=== PATIENT | female | born 1965 | race Caucasian/White ===

== ENCOUNTER 2024-10-24 16:44 | Inpatient (IN) | payer MEDICARE, BC ==
[2024-10-24 18:05] LABS: Basophils # (A) 0.08 10*3/uL (0.00-0.10); Basophils % (A) 0.6 %; Eosinophils # (A) 0.03 10*3/uL (0.04-0.35); Eosinophils % (A) 0.2 %; HCT 41.7 % (37.2-46.3); HGB 14.6 g/dL (12.0-15.0); Lymphocytes # (A) 2.43 10*3/uL (0.90-5.00); Lymphocytes % (A) 17.6 %; MCH 32.4 pg (27.0-32.0); MCV 92.5 fL (80.0-97.0); Mean Platelet Volume 11.1 fL (9.5-12.2); Monocytes # (A) 0.83 10*3/uL (0.20-1.00); Neutrophils # (A) 10.38 10*3/uL (1.80-7.70); Neutrophils % (A) 75.2 %; Platelet Count 197 10*3/uL (140-440); RBC 4.51 10*6/uL (4.10-5.20); RDW 13.2 % (11.5-14.5); WBC 13.81 10*3/uL (4.50-10.00)
--- NOTE | 2024-10-24 18:05 | ED ---
General Adult HPI - General Chief complaint: Psychiatric Symptoms Stated complaint: mental health Time Seen by Provider: 10/24/24 16:45 Source: patient, EMS, RN notes reviewed, old records reviewed Mode of arrival: EMS Limitations: altered mental status - History of Present Illness Initial comments: 59-year-old female presenting for psychiatric evaluation. Patient is not from the area. Paramedics had attempted to contact the family but were only able to leave messages. Patient is acutely psychotic, delusional, paranoid, noncooperative. She required restraints during transport. She was found out in traffic outside of a hotel that she had recently been evicted from. - Related Data Home Medications Medication Instructions Recorded Confirmed Dapagliflozin Propanediol [Farxiga] 10 mg PO DAILY 10/24/24 10/24/24 Metoprolol Succinate [Toprol XL] 100 mg PO DAILY 10/24/24 10/24/24 QUEtiapine [SEROquel] 100 mg PO HS 10/24/24 10/24/24 glipiZIDE [glipiZIDE ER] 10 mg PO BID 10/24/24 10/24/24 hydrOXYzine HCL [Atarax] 25 mg PO TID PRN 10/24/24 10/24/24 tiZANidine HCL [Zanaflex] 4 mg PO Q6H PRN 10/24/24 10/24/24 Allergies Allergy/AdvReac Type Severity Reaction Status Date / Time diphenhydramine [facility] Verified 10/24/24 17:23 [From Benadryl] unknown reaction covid-19 vaccine (unknown) Allergy [facility] - Uncoded 10/24/24 17:23 unknown reaction Review of Systems ROS Statement: Those systems with pertinent positive or pertinent negative responses have been documented in the HPI. ROS Other: All systems not noted in ROS Statement are negative. Past Medical History Past Medical History: Diabetes Mellitus, Hypertension, Sleep Apnea/CPAP/BIPAP History of Any Multi-Drug Resistant Organisms: Unobtainable Additional Past Surgical History / Comment(s): back surgery with stimulator, abdominal aortic aneurymn repair 2021 Past Psychological History: Unable to Obtain Smoking Status: Unknown if ever smoked Past Alcohol Use History: Unable to Obtain Past Drug Use History: Unable to Obtain General Exam - General Exam Comments Initial Comments: Patient refuses physical exam General appearance: alert, in no apparent distress, anxious Head exam: Present: atraumatic, normocephalic Eye exam: Present: normal appearance Respiratory exam: Absent: respiratory distress Cardiovascular Exam: Present: other (Vital signs reveal tachycardia, patient refuses auscultation) GI/Abdominal exam: Absent: distended Neurological exam: Present: alert. Absent: oriented X3, motor sensory deficit Psychiatric exam: Present: anxious, other (Acutely psychotic, paranoid and delusional) Skin exam: Present: normal color Course Vital Signs 10/24/24 16:48 Temperature 98.7 F Pulse Rate 126 H Respiratory 20 Rate Blood Pressure 111/78 O2 Sat by Pulse 96 Oximetry Procedures - Restraint - Face to Face Restraint Occurrence 1 Patient's Immediate Situation: Endangers self safety, Endangers staff safety Patient's Reaction to the Intervention: Uncooperative, Hostile, Belligerent Patient's Medical & Behavioral Condition: Awake, Alert, Agitated, Paranoid Need to Continue or Terminate Restraint or Seclusion: Continue Face to Face Eval of Restraint Date: 10/24/24 Face to Face Eval of Restraint Time: 16:58 Medical Decision Making - Medical Decision Making Was pt. sent in by a medical professional or institution (, PA, LAMP CLEANER, urgent care, hospital, or half-way...) When possible be specific @ -No Did you speak to anyone other than the patient for history (EMS, parent, family, police, friend...)? What history was obtained from this source @ -No Did you review nursing and triage notes (agree or disagree)? Why? @ -I reviewed and agree with nursing and triage notes Were old charts reviewed (outside hosp., previous admission, EMS record, old EKG, old radiological studies, urgent care reports/EKG's, half-way records)? Report findings @ -No old charts were reviewed Differential Mental Health Depression, anxiety, bipolar, psychosis, schizophrenia, borderline personality, situational depression, adjustment disorder, behavioral disorder, brain tumor, malingering, substance abuse, encephalopathy, medication reaction, dementia, hypothyroidism, degenerative neurologic disorder, lupus.... This is not meant to be all-inclusive list EKG interpreted by me (3pts min.). @ -As above X-rays interpreted by me (1pt min.). @ -None done CT interpreted by me (1pt min.). @ -None done U/S interpreted by me (1pt. min.). @ -None done What testing was considered but not performed or refused? (CT, X-rays, U/S, labs)? Why? @ -None What meds were considered but not given or refused? Why? @ -None Did you discuss the management of the patient with other professionals (professionals i.e. Dr., PA, LAMP CLEANER, lab, RT, psych nurse, social insurance analyst, chandelier maker, teacher, hydrological technical officer, caser in)? Give summary @ -[EPS. Was smoking cessation discussed for >3mins.? @ -No Was critical care preformed (if so, how long)? @ -No Were there social determinants of health that impacted care today? How? (Homelessness, low income, unemployed, alcoholism, drug addiction, transportatio n, low edu. Level, literacy, decrease access to med. care, long term, rehab)? @ -No Was there de-escalation of care discussed even if they declined (Discuss DNR or withdrawal of care, Hospice)? DNR status @ -No What co-morbidities impacted this encounter? (DM, HTN, Smoking, COPD, CAD, Cancer, CVA, ARF, Chemo, Hep., AIDS, mental health diagnosis, sleep apnea, morbid obesity)? @ -None Was patient admitted / discharged? Hospital course, mention meds given and route, prescriptions, significant lab abnormalities, going to OR and other pertinent info. @ -59-year-old female presenting, paranoid, delusional, agitated. Patient initially requires restraints. She does eventually cooperate enough to be evaluated by emergency psych services and felt to require inpatient psychiatric care. I do agree with this assessment and completed a clinical certification on this patient. She will be admitted to this institution. Undiagnosed new problem with uncertain prognosis? @ -No Drug Therapy requiring intensive monitoring for toxicity (Heparin, Nitro, Insulin, Cardizem)? @ -No Were any procedures done? @ -No Diagnosis/symptom? @Acute psychosis. Acute, or Chronic, or Acute on Chronic? @Acute Uncomplicated (without systemic symptoms) or Complicated (systemic symptoms)? @ -Default Side effects of treatment? @ -No Exacerbation, Progression, or Severe Exacerbation? @ -No Poses a threat to life or bodily function? How? (Chest pain, [place], [place], pneumonia, PE, COPD, DKA, ARF, appy, cholecystitis, CVA, Diverticulitis, Homicidal, Suicidal, threat to staff... and all critical care pts) @ -[Yes, self-harm - Lab Data Result diagrams: 10/24/24 17:57 10/24/24 17:57 Lab Results 10/24/24 10/24/24 10/24/24 Range/Units 17:57 17:57 17:57 WBC 13.81 H (4.50-10.00) 10*3/uL RBC 4.51 (4.10-5.20) 10*6/uL Hgb 14.6 (12.0-15.0) g/dL Hct 41.7 (37.2-46.3) % MCV 92.5 (80.0-97.0) fL MCH 32.4 H (27.0-32.0) pg MCHC 35.0 (32.0-37.0) g/dL Plt Count 197 (140-440) 10*3/uL MPV 11.1 (9.5-12.2) fL Immature Gran % (Auto) 0.4 % Neutrophils % 75.2 % Lymphocytes % 17.6 % Monocytes % 6.0 % Eosinophils % 0.2 % Basophils % 0.6 % Immature Gran # 0.06 H (0.00-0.04) 10*3/uL Neutrophils # 10.38 H (1.80-7.70) 10*3/uL Lymphocytes # 2.43 (0.90-5.00) 10*3/uL Monocytes # 0.83 (0.20-1.00) 10*3/uL Eosinophils # 0.03 L (0.04-0.35) 10*3/uL Basophils # 0.08 (0.00-0.10) 10*3/uL Sodium 138 (137-145) mmol/L Potassium 3.8 (3.5-5.1) mmol/L Chloride 103 (98-107) mmol/L Carbon Dioxide 22 (22-30) mmol/L Anion Gap 13 mmol/L BUN 21 H (7-17) mg/dL Creatinine 0.92 (0.52-1.04) mg/dL Est GFR (CKD-EPI)AfAm 79 (>60 ml/min/1.73 sqM) Est GFR (CKD-EPI)NonAf 68 (>60 ml/min/1.73 sqM) Glucose 150 H (74-99) mg/dL Calcium 9.7 (8.4-10.2) mg/dL Total Bilirubin 1.0 (0.2-1.3) mg/dL AST 65 H (14-36) U/L ALT 48 H (4-34) U/L Alkaline Phosphatase 91 (38-126) U/L Total Protein 7.6 (6.3-8.2) g/dL Albumin 4.5 (3.5-5.0) g/dL Urine Color Urine Appearance (Clear) Urine pH (5.0-8.0) Ur Specific [place] (1.001-1.035) Urine Protein (Negative) Urine Glucose (UA) (Negative) Urine Ketones (Negative) Urine Blood (Negative) Urine Nitrite (Negative) Urine Bilirubin (Negative) Urine Urobilinogen (<2.0) mg/dL Ur Leukocyte Esterase (Negative) Urine RBC (0-5) /hpf Urine WBC (0-5) /hpf Ur Squamous Epith Cells (0-4) /hpf Urine Bacteria (None) /hpf Urine Mucus (None) /hpf Urine Opiates Screen (NotDetected) Ur Oxycodone Screen (NotDetected) Urine Methadone Screen (NotDetected) Ur Barbiturates Screen (NotDetected) U Tricyclic Antidepress (NotDetected) Ur Phencyclidine Scrn (NotDetected) Ur Amphetamines Screen (NotDetected) U Methamphetamines Scrn (NotDetected) U Benzodiazepines Scrn (NotDetected) Urine Cocaine Screen (NotDetected) U Marijuana (THC) Screen (NotDetected) Serum Alcohol <10 mg/dL SARS-CoV-2 (PCR) Not Detected (Not Detectd) 10/24/24 Range/Units 19:47 WBC (4.50-10.00) 10*3/uL RBC (4.10-5.20) 10*6/uL Hgb (12.0-15.0) g/dL Hct (37.2-46.3) % MCV (80.0-97.0) fL MCH (27.0-32.0) pg MCHC (32.0-37.0) g/dL Plt Count (140-440) 10*3/uL MPV (9.5-12.2) fL Immature Gran % (Auto) % Neutrophils % % Lymphocytes % % Monocytes % % Eosinophils % % Basophils % % Immature Gran # (0.00-0.04) 10*3/uL Neutrophils # (1.80-7.70) 10*3/uL Lymphocytes # (0.90-5.00) 10*3/uL Monocytes # (0.20-1.00) 10*3/uL Eosinophils # (0.04-0.35) 10*3/uL Basophils # (0.00-0.10) 10*3/uL Sodium (137-145) mmol/L Potassium (3.5-5.1) mmol/L Chloride (98-107) mmol/L Carbon Dioxide (22-30) mmol/L Anion Gap mmol/L BUN (7-17) mg/dL Creatinine (0.52-1.04) mg/dL Est GFR (CKD-EPI)AfAm (>60 ml/min/1.73 sqM) Est GFR (CKD-EPI)NonAf (>60 ml/min/1.73 sqM) Glucose (74-99) mg/dL Calcium (8.4-10.2) mg/dL Total Bilirubin (0.2-1.3) mg/dL AST (14-36) U/L ALT (4-34) U/L Alkaline Phosphatase (38-126) U/L Total Protein (6.3-8.2) g/dL Albumin (3.5-5.0) g/dL Urine Color Yellow Urine Appearance Clear (Clear) Urine pH 5.5 (5.0-8.0) Ur Specific [place] 1.028 (1.001-1.035) Urine Protein Trace H (Negative) Urine Glucose (UA) Negative (Negative) Urine Ketones 1+ H (Negative) Urine Blood Moderate H (Negative) Urine Nitrite Negative (Negative) Urine Bilirubin Negative (Negative) Urine Urobilinogen <2.0 (<2.0) mg/dL Ur Leukocyte Esterase Negative (Negative) Urine RBC 6 H (0-5) /hpf Urine WBC 4 (0-5) /hpf Ur Squamous Epith Cells 4 (0-4) /hpf Urine Bacteria Rare H (None) /hpf Urine Mucus Occasional H (None) /hpf Urine Opiates Screen Not Detected (NotDetected) Ur Oxycodone Screen Not Detected (NotDetected) Urine Methadone Screen Not Detected (NotDetected) Ur Barbiturates Screen Not Detected (NotDetected) U Tricyclic Antidepress Not Detected (NotDetected) Ur Phencyclidine Scrn Not Detected (NotDetected) Ur Amphetamines Screen Not Detected (NotDetected) U Methamphetamines Scrn Not Detected (NotDetected) U Benzodiazepines Scrn Not Detected (NotDetected) Urine Cocaine Screen Not Detected (NotDetected) U Marijuana (THC) Screen Not Detected (NotDetected) Serum Alcohol mg/dL SARS-CoV-2 (PCR) (Not Detectd) Disposition Clinical Impression: Acute psychosis Disposition: ADMITTED IP TO THIS [facility] Condition: Stable Is patient prescribed a controlled substance at d/c from ED?: No Referrals: None,Stated [Primary Care Provider] - 1-2 days Time of Disposition: 21:23
[2024-10-24 18:17] LABS: ALT 48 U/L (4-34); AST 65 U/L (14-36); African American GFR (CKD) 79 (>60 ml/min/1.73 sqM); Albumin 4.5 g/dL (3.5-5.0); Alcohol <10 mg/dL; Alkaline Phosphatase 91 U/L (38-126); Anion Gap 13 mmol/L; Blood Urea Nitrogen 21 mg/dL (7-17); Calcium 9.7 mg/dL (8.4-10.2); Carbon Dioxide 22 mmol/L (22-30); Chloride 103 mmol/L (98-107); Glucose 150 mg/dL (74-99); Non-African American GFR(CKD) 68 (>60 ml/min/1.73 sqM); Potassium 3.8 mmol/L (3.5-5.1); Sodium 138 mmol/L (137-145); Total Protein 7.6 g/dL (6.3-8.2)
[2024-10-24 20:06] LABS: Appearance,Urine Clear (Clear); Bacteria,Urine Rare /hpf; Bilirubin,Urine Negative (Negative); Blood,Urine Moderate (Negative); Color,Urine Yellow; Glucose,Urine (UA) Negative (Negative); Ketones,Urine 1+ (Negative); Leukocyte Esterase,Urine Negative (Negative); Mucus,Urine Occasional /hpf; Nitrite,Urine Negative (Negative); PH, Urine 5.5 (5.0-8.0); Protein,Urine Trace (Negative); RBC,Urine 6 /hpf (0-5); Specific Gravity,Urine 1.028 (1.001-1.035); Squamous Epithelial Cell,Urine 4 /hpf (0-4); Urobilinogen,Urine <2.0 mg/dL (<2.0); WBC,Urine 4 /hpf (0-5)
[2024-10-24 20:12] LABS: Amphetamine Screen,Urine Not Detected (NotDetected); Barbiturate Screen,Urine Not Detected (NotDetected); Benzodiazepines Screen,Urine Not Detected (NotDetected); Cocaine Screen,Urine Not Detected (NotDetected); Methadone Screen, Urine Not Detected (NotDetected); Opiate Screen,Urine Not Detected (NotDetected); Oxycodone Screen, Urine Not Detected (NotDetected); Phencyclidine Screen,Urine Not Detected (NotDetected); Tricyclic Antidepressant,Urine Not Detected (NotDetected); Urn Cannabinoid Scrn Not Detected (NotDetected)
[2024-10-24] MEDS ORDERED: MAG HYDROX/AL HYDROX/SIMETH 355 ML BOTTLE PO PRN (22:19)
[2024-10-24] MEDS: ZIPRASIDONE 20 MG VIAL IM STA (22:36)
[2024-10-25 07:48] LABS: Glucose,Whole Blood 121 mg/dL (70-110)
[2024-10-25 07:57] LABS: Basophils # (A) 0.07 10*3/uL (0.00-0.10); Basophils % (A) 0.8 %; Eosinophils # (A) 0.12 10*3/uL (0.04-0.35); Eosinophils % (A) 1.4 %; HGB 14.3 g/dL (12.0-15.0); Lymphocytes # (A) 3.94 10*3/uL (0.90-5.00); Lymphocytes % (A) 46.1 %; MCH 32.1 pg (27.0-32.0); MCV 94.2 fL (80.0-97.0); Mean Platelet Volume 11.3 fL (9.5-12.2); Monocytes # (A) 0.65 10*3/uL (0.20-1.00); Monocytes % (A) 7.6 %; Neutrophils # (A) 3.75 10*3/uL (1.80-7.70); Neutrophils % (A) 43.9 %; Platelet Count 190 10*3/uL (140-440); RBC 4.46 10*6/uL (4.10-5.20); RDW 13.4 % (11.5-14.5); WBC 8.55 10*3/uL (4.50-10.00)
[2024-10-25 08:14] LABS: ALT 47 U/L (4-34); AST 56 U/L (14-36); African American GFR (CKD) 81 (>60 ml/min/1.73 sqM); Albumin 4.2 g/dL (3.5-5.0); Alkaline Phosphatase 89 U/L (38-126); Anion Gap 11 mmol/L; Blood Urea Nitrogen 20 mg/dL (7-17); Calcium 9.5 mg/dL (8.4-10.2); Carbon Dioxide 23 mmol/L (22-30); Chloride 106 mmol/L (98-107); Glucose 120 mg/dL (74-99); Non-African American GFR(CKD) 70 (>60 ml/min/1.73 sqM); Potassium 3.6 mmol/L (3.5-5.1); Sodium 140 mmol/L (137-145); Total Bilirubin 0.9 mg/dL (0.2-1.3); Total Protein 7.1 g/dL (6.3-8.2)
[2024-10-25] MEDS: METOPROLOL SUCCINATE (ER) 100 MG TAB.ER.24H PO SCH (09:23)
[2024-10-25] MEDS: DAPAGLIFLOZIN PROPANEDIOL 10 MG TABLET PO SCH (09:24)
[2024-10-25] MEDS: glipiZIDE 5 MG TAB PO SCH (09:26)
[2024-10-25] MEDS: NICOTINE 14MG/24HR PATCH TRANSDERM SCH (09:26)
--- NOTE | 2024-10-25 11:48 | P.HP ---
Psychiatric H&P - . H&P Date: 10/25/24 History & Physical: Allergies Allergy/AdvReac Type Severity Reaction Status Date / Time diphenhydramine [facility] - Verified 10/24/24 17:23 From Benadryl unknown reaction covid-19 vaccine (unknown) Allergy [facility] - Uncoded 10/24/24 17:23 unknown reaction Vital Signs Temp 97.7 F 10/25/24 09:00 Pulse 130 H 10/25/24 09:00 Resp 16 10/25/24 09:00 BP 135/68 10/25/24 09:00 Pulse Ox 100 10/25/24 09:00 FiO2 Intake & Output 10/24/24 10/25/24 10/25/24 18:59 06:59 18:59 Weight 68.039 kg Laboratory Last Values WBC 8.55 10*3/uL (4.50-10.00) 10/25/24 07:27 RBC 4.46 10*6/uL (4.10-5.20) 10/25/24 07:27 Hgb 14.3 g/dL (12.0-15.0) 10/25/24 07:27 Hct 42.0 % (37.2-46.3) 10/25/24 07:27 MCV 94.2 fL (80.0-97.0) 10/25/24 07:27 MCH 32.1 pg (27.0-32.0) H 10/25/24 07:27 MCHC 34.0 g/dL (32.0-37.0) 10/25/24 07:27 Plt Count 190 10*3/uL (140-440) 10/25/24 07:27 MPV 11.3 fL (9.5-12.2) 10/25/24 07:27 Immature Gran % (Auto) 0.2 % 10/25/24 07:27 Neutrophils % 43.9 % 10/25/24 07:27 Lymphocytes % 46.1 % 10/25/24 07:27 Monocytes % 7.6 % 10/25/24 07:27 Eosinophils % 1.4 % 10/25/24 07:27 Basophils % 0.8 % 10/25/24 07:27 Immature Gran # 0.02 10*3/uL (0.00-0.04) 10/25/24 07:27 Neutrophils # 3.75 10*3/uL (1.80-7.70) 10/25/24 07:27 Lymphocytes # 3.94 10*3/uL (0.90-5.00) 10/25/24 07:27 Monocytes # 0.65 10*3/uL (0.20-1.00) 10/25/24 07:27 Eosinophils # 0.12 10*3/uL (0.04-0.35) 10/25/24 07:27 Basophils # 0.07 10*3/uL (0.00-0.10) 10/25/24 07:27 Sodium 140 mmol/L (137-145) 10/25/24 07:27 Potassium 3.6 mmol/L (3.5-5.1) 10/25/24 07:27 Chloride 106 mmol/L (98-107) 10/25/24 07:27 Carbon Dioxide 23 mmol/L (22-30) 10/25/24 07:27 Anion Gap 11 mmol/L 10/25/24 07:27 BUN 20 mg/dL (7-17) H 10/25/24 07:27 Creatinine 0.90 mg/dL (0.52-1.04) 10/25/24 07:27 Est GFR (CKD-EPI)AfAm 81 (>60 ml/min/1.73 sqM) 10/25/24 07:27 Est GFR (CKD-EPI)NonAf 70 (>60 ml/min/1.73 sqM) 10/25/24 07:27 Glucose 120 mg/dL (74-99) H 10/25/24 07:27 POC Glucose (mg/dL) 121 mg/dL (70-110) H 10/25/24 07:47 POC Glu Building Maintenance Supervisor ID Tri Cueto 10/25/24 07:[address] Glu mg/dL 146 mg/dL 10/25/24 07:27 Hemoglobin A1c 6.7 % (<=6.0) H 10/25/24 07:27 Calcium 9.5 mg/dL (8.4-10.2) 10/25/24 07:27 Total Bilirubin 0.9 mg/dL (0.2-1.3) 10/25/24 07:27 AST 56 U/L (14-36) H 10/25/24 07:27 ALT 47 U/L (4-34) H 10/25/24 07:27 Alkaline Phosphatase 89 U/L (38-126) 10/25/24 07:27 Total Protein 7.1 g/dL (6.3-8.2) 10/25/24 07:27 Albumin 4.2 g/dL (3.5-5.0) 10/25/24 07: TSH 2.000 mIU/L (0.465-4.680) 10/25/24 07:27 Urine Color Yellow 10/24/24 19:47 Urine Appearance Clear (Clear) 10/24/24 19:47 Urine pH 5.5 (5.0-8.0) 10/24/24 19:47 Ur Specific [place] 1.028 (1.001-1.035) 10/24/24 19:47 Urine Protein Trace (Negative) H 10/24/24 19:47 Urine Glucose (UA) Negative (Negative) 10/24/24 19:47 Urine Ketones 1+ (Negative) H 10/24/24 19:47 Urine Blood Moderate (Negative) H 10/24/24 19:47 Urine Nitrite Negative (Negative) 10/24/24 19:47 Urine Bilirubin Negative (Negative) 10/24/24 19:47 Urine Urobilinogen <2.0 mg/dL (<2.0) 10/24/24 19:47 Ur Leukocyte Esterase Negative (Negative) 10/24/24 19:47 Urine RBC 6 /hpf (0-5) H 10/24/24 19:47 Urine WBC 4 /hpf (0-5) 10/24/24 19:47 Ur Squamous Epith Cells 4 /hpf (0-4) 10/24/24 19:47 Urine Bacteria Rare /hpf (None) H 10/24/24 19:47 Urine Mucus Occasional /hpf (None) H 10/24/24 19:47 Urine Opiates Screen Not Detected (NotDetected) 10/24/24 19:47 Ur Oxycodone Screen Not Detected (NotDetected) 10/24/24 19:47 Urine Methadone Screen Not Detected (NotDetected) 10/24/24 19:47 Ur Barbiturates Screen Not Detected (NotDetected) 10/24/24 19:47 U Tricyclic Antidepress Not Detected (NotDetected) 10/24/24 19:47 Ur Phencyclidine Scrn Not Detected (NotDetected) 10/24/24 19:47 Ur Amphetamines Screen Not Detected (NotDetected) 10/24/24 19:47 U Methamphetamines Scrn Not Detected (NotDetected) 10/24/24 19:47 U Benzodiazepines Scrn Not Detected (NotDetected) 10/24/24 19:47 Urine Cocaine Screen Not Detected (NotDetected) 10/24/24 19:47 U Marijuana (THC) Screen Not Detected (NotDetected) 10/24/24 19:47 Serum Alcohol <10 mg/dL 10/24/24 17:57 SARS-CoV-2 (PCR) Not Detected (Not Detectd) 10/24/24 17:57 10/25/24 11:40 IDENTIFYING DATA: Patient is a 59-year-old female, she claims that she is she is also going through a separation with her , she has 1 son and she currently lives with her in a house HPI: Patient presented to the hospital yesterday and was evaluated by EPS nurse and according to note "Pt was brought in on a petition from police. [facility] [place] [facility] stated that she was kicked out of the hotel, she was yelling into the street, walking into the main road, yelling that she was going to rip her dogs eyes out. Upon assessment pt was wearing her robe from the hotel and sunglasses. PT was signing a form about wearing her sunglasses and she wanted the sitter to sign the hand written paper too. Pt yelled out to security that she was going to call [employer] to have them arrested. Pt has no insight into her mental health. During assessment pt is disorganized, gradiose, tangential, and demanding. Pt was demanding to see RN's notes and sign off on them. Pt has no understanding as to why she is in the ER and why she was restrainted by EMS. Pt was read the petition and denies everything that is written on it but states that she was at the gas station and she was waving at people and talking. Pts appearance is unkempt and disheleved. When asking questions pt would answer and then state, "I will always come up with an explanation for everything". When asked why police were called she said, "It's probably d/t an electronic issue with my husbands computer, the light switch at the hotel wasn't working either". BALL ASSEMBLER informed this RN that police stated that she was going to rip her dogs eyes out and she denied, "I was only checking his eyes, because he's tired...you can't hold my dog here, it's illegal". RN explained that police informed ER that he is with animal control for now. Pt then went on a tangent about her mother petitioning her before and and that she was in and out of mental hospitals but wasn't really ill, "I prefer everything organic and my medications are not your business, they are private in my medical records". [facility] were able to pull her medications. Pt would not share her contact number, her husbands information, or medications. Pt appears slightly paranoid. Throughout assessment she would continue to state that, "everything can be explained". Pt was rambling baout getting a clear bill of health and the petition states that she can go, then someone broke into her home and messed with their computer, to talking about trusting her pharmacy, "I will find out". Pt denies SI, HI, or hallucinations at this time. Pt denies any drugs or ETOH, UDS NEG and BAT NEG. Pt has moments of clarity but then speaks off the wall. " Patient was seen wandering the hallways earlier today, appears to be disheveled in appearance. She had to be asked to leave group several times due to being disruptive and demanding and causing arguments within the group. Patient was approached by song writer today in the hallway and appeared to be fairly paranoid//suspicious of song writer. Decorator Hand asked if patient wanted to speak in the office she hesitated and did not want to step forward in the office. She preferred to speak in the lounge, she pointed out the different cameras in the lounge to song writer. She asked about credentials. She asked several times what song writer is writing down on the piece of paper. She appeared to have poor frustration tolerance, very poor insight poor judgment. Does not believe that she needs to be in the hospital or take medications. Decorator Hand attempted to speak with patient about the petition and her symptoms however patient began being frustrated with song writer and demanded to end the interview and walked away. She was fairly uncooperative with the rest of the interview and gave no previous psychiatric history or social history. And did not answer any questions regarding auditory or visual hallucinations or suicidal/homicidal ideations. She also did not answer any questions related to drug use. PAST PSYCHIATRIC HISTORY: Patient has a history of psychosis. She is currently on Seroquel 100 mg nightly as her home medication. Unsure if she is taking her medications. Unable to give further past psychiatric history PMH: as per ER note ALLERGIES: as per EMR CHEMICAL DEPENDENCY HISTORY: unable to obtain FAMILY PSYCHIATRIC/SUBSTANCE USE HISTORY: unable to obtain SOCIAL HISTORY: Patient claims that she lives with her in a house, she has 1 son. Claims that she is going through a separation. unable to obtain further social history MENTAL STATUS EXAM: General Appearance: Patient appears to be disheveled in appearance, disheveled hair, stated age is alert, fairly demanding argumentative and oppositional. Patient appears to have poor hygiene and grooming. Behavior: Patient is wandering the hallways, fairly demanding and argumentative. Paranoid/suspicious Speech: Patient's speech is fluent and nonpressured. [place] Mood/Affect: Patient reports their mood is "okay", affect is congruent and constricted. Suicidality/Homicidality: Unable to obtain Perceptions: Unable to obtain Though content/process: Patient is fairly demanding, superficial. Argumentative. Paranoid Memory and concentration: Unable to assess Judgment and insight: Poor STRENGTHS/WEAKNESSES: strength is that patient is resilient. Weakness is that patient has poor judgment and is impulsive and has poor insight INTELLECT: Average IMPRESSIONS: Psychosis unspecified PLAN: -Patient is admitted under voluntary status to [facility] for stabilization of psychiatric symptoms and safety. Patient has not signed adult voluntary form and has not signed medication consent and is placed in patient's chart. A second certification was completed and along with petition will be filed for court. -Medications : -Ativan and Haldol PRN for agitation/aggression -Patient was informed of the risks, benefits and side effects of the medications. Patient did not signed med consent form and was placed in chart. Patient was offered medication information and declined it -Internal Medicine consult to perform medical evaluation and physical. -NRT -nicotine patch -SW on board for discharge planning. Encourage patient to participate in groups to work on coping skills. Will await deferral and court date. 10/25/24 11:47 10/25/24 11:48
[2024-10-25 12:45] LABS: Glucose,Whole Blood 78 mg/dL (70-110)
[2024-10-25] MEDS: NITROFURANTOIN MONOHYD/M-CRYST 100 MG CAP PO SCH (15:18)
[2024-10-25 17:41] LABS: Glucose,Whole Blood 106 mg/dL (70-110)
[2024-10-25] MEDS: PALIPERIDONE 3 MG TAB.ER.24 PO SCH (20:40)
[2024-10-25] MEDS ORDERED: QUEtiapine 100 MG TAB PO SCH (21:00)
--- NOTE | 2024-10-26 05:43 | P.MDCNMH ---
History of Present Illness H&P Date: 10/26/24 59-year-old female diabetes mellitus hypertension Patient coming in for acute psychosis and paranoid ideation. Patient insisted on door to be open during exam and to have someone to hold the door for her she gave permission for the nurse to hold the door and be listening to our conversation. Patient is fixated on the fact that someone is poisoning her and that everyone in her neighborhood and even her pharmacy knows about it she is asking for that to be investigated. The patient currently denies any fever, chills, cough, sore throat, chest pain , trouble breathing , nausea , vomiting, abd pain , changes in urinary or bowel habits. Patient denies any tobacco smoking and illicit drugs or alcohol review of systems Pertinent positives as noted in HPI. All other systems were reviewed and are negative on exam Constitutional: No acute distress Eyes: Anicteric sclerae, moist conjunctiva, Pupils equal round reactive to light Lungs: Clear to auscultation Clear to percussion Normal respiratory effort, no accessory muscle use Cardiovascular: Heart regular in rate and rhythm, No murmurs, gallops, or rubs No peripheral edema Abdominal: Soft Nontender, no guarding, rebound or rigidity Abdomen moving with respiration Normoactive bowel sounds Extremities: No clubbing Pedal pulses intact and symmetrical Radial pulses intact and symmetrical No calf tenderness Psychiatric: Alert and oriented to person, place and time Neuro Muscles Strength 5/5 in all 4 extremities Sensation to light touch grossly present throughout Assessment and plan Diabetes mellitus Well-controlled A1c 6.7 Continue with current regimen Hypertension Controlled Continue with metoprolol Mild transaminitis concerns regarding fatty liver disease Concerns regarding metabolic syndrome and MASH Consider abdominal ultrasound to evaluate for fatty liver Consider close follow-up outpatient on liver enzymes until resolution Continue with tight blood pressure control and blood sugar control Check lipid profile Otherwise the rest of her blood work unremarkable Thank you for this consultation Past Medical History Past Medical History: Diabetes Mellitus, Hypertension, Sleep Apnea/CPAP/BIPAP History of Any Multi-Drug Resistant Organisms: Unobtainable Additional Past Surgical History / Comment(s): back surgery with stimulator, abdominal aortic aneurymn repair 2021 Past Psychological History: Unable to Obtain Smoking Status: Unknown if ever smoked Past Alcohol Use History: Unable to Obtain Past Drug Use History: Unable to Obtain Medications and Allergies Home Medications Medication Instructions Recorded Confirmed Type Dapagliflozin Propanediol [Farxiga] 10 mg PO DAILY 10/24/24 10/24/24 History Metoprolol Succinate [Toprol XL] 100 mg PO DAILY 10/24/24 10/24/24 History QUEtiapine [SEROquel] 100 mg PO HS 10/24/24 10/24/24 History glipiZIDE [glipiZIDE ER] 10 mg PO BID 10/24/24 10/24/24 History hydrOXYzine HCL [Atarax] 25 mg PO TID PRN 10/24/24 10/24/24 History tiZANidine HCL [Zanaflex] 4 mg PO Q6H PRN 10/24/24 10/24/24 History Allergies Allergy/AdvReac Type Severity Reaction Status Date / Time diphenhydramine Allergy Per [facility] - Verified 10/24/24 17:23 [From Benadryl] unknown reaction covid-19 vaccine (unknown) Allergy Per [facility] - Uncoded 10/24/24 17:23 unknown reaction Physical Exam Vitals: Vital Signs Temp Pulse Resp BP Pulse Ox 10/25/24 21:00 97.0 F L 113 H 18 153/83 98 10/25/24 09:00 97.7 F 130 H 16 135/68 100 Intake and Output 10/25/24 10/25/24 10/26/24 14:59 22:59 06:59 Other: Weight 68.039 kg Cranial Nerve Examination - Cranial Nerves Cranial Nerve II- Optic: Intact Cranial Nerve III- Oculomotor: Intact Cranial Nerve IV- Trochlear: Intact Cranial Nerve V- Trigeminal: Intact Cranial Nerve - Abducens: Intact Cranial Nerve VII- Facial: Intact Cranial Nerve VIII- Auditory: Intact Cranial Nerve IX- Glossopharyngeal: Intact Cranial Nerve X- Vagus: Intact Cranial Nerve XI- Accessory: Intact Cranial Nerve XII- Hypoglossal: Intact Results CBC & Chem 7: 10/25/24 07:27 10/25/24 07:27 Labs: Abnormal Lab Results - Last 24 Hours (Table) 10/25/24 10/25/24 10/25/24 Range/Units 07:27 07:27 07:27 MCH 32.1 H (27.0-32.0) pg BUN 20 H (7-17) mg/dL Glucose 120 H (74-99) mg/dL POC Glucose (mg/dL) (70-110) mg/dL Hemoglobin A1c 6.7 H (<=6.0) % AST 56 H (14-36) U/L ALT 47 H (4-34) U/L // Range/Units 07:47 MCH (27.0-32.0) pg BUN (7-17) mg/dL Glucose (74-99) mg/dL POC Glucose (mg/dL) 121 H (70-110) mg/dL Hemoglobin A1c (<=6.0) % AST (14-36) U/L ALT (4-34) U/L
[2024-10-26 07:55] LABS: Glucose,Whole Blood 126 mg/dL (70-110)
[2024-10-26] MEDS: IBUPROFEN 600 MG TAB PO PRN (08:28)
[2024-10-26 10:50] LABS: Chol/HDL Ratio 3.58 Ratio; LDL Cholesterol,Calculated 116.7 mg/dL (0.0-131.0)
--- NOTE | 2024-10-26 11:50 | P.PN ---
Progress Note - Text Progress Note Date: 10/26/24 Interval history: Patient was seen today wandering the hallways insistent on speaking with chief underwriter. She continues to be fairly argumentative and oppositional with chief underwriter. Also fairly suspicious of chief underwriter and does not trust them. She pulled out her medication list and asked chief underwriter several times "why are you putting me on deadly medications". [employer] attempted to explain to patient that these were prn medications at they were not deadly and only used for certain circumstances that require it however patient kept on interrupting and repeatedly asked the question. He appeared to have poor reality testing, impulsive demanding. She continues to be disruptive in group and in the milieu. She did take her medication last night, claims that she does not want to take medications that chief underwriter's prescribing. Hygiene and grooming appear to be improving mildly. When asked about sleep appetite visual auditory suicidal and homicidal ideations she directed the question back at chief underwriter. MENTAL STATUS EXAM: General Appearance: Patient appears to be disheveled in appearance, disheveled hair, stated age is alert, fairly demanding argumentative and oppositional. Patient appears to have mildly improving hygiene and grooming. Behavior: Patient is wandering the hallways, fairly demanding and argumentative. Paranoid/suspicious Speech: Patient's speech is fluent and nonpressured. [place], repetitive Mood/Affect: Patient reports their mood is "fine", affect is incongruent and constricted. Suicidality/Homicidality: Unable to obtain Perceptions: Unable to obtain Though content/process: Patient is fairly demanding, superficial. Argumentative. Paranoid demanding discharge Memory and concentration: Unable to assess Judgment and insight: Poor IMPRESSIONS: Psychosis unspecified PLAN: -Patient is admitted under voluntary status to MHU for stabilization of psychiatric symptoms and safety. Patient has not signed adult voluntary form and has not signed medication consent and is placed in patient's chart. A second certification was completed and along with petition will be filed for court. -Medications : increase invega po to 3 mg bid for mood stabilization/psychosis. Will likely need to consider long-acting injection due to very poor insight and poor compliance. Consider adding mood stabilizer such as lithium or Depakote if needed over the weekend. -Ativan and Haldol PRN for agitation/aggression -NRT -nicotine patch -SW on board for discharge planning. Encourage patient to participate in groups to work on coping skills. Will await deferral and court date.
[2024-10-26] MEDS: ACETAMINOPHEN TAB 325 MG TAB PO PRN (12:30)
[2024-10-26 12:47] LABS: Glucose,Whole Blood 99 mg/dL (70-110)
[2024-10-26 17:48] LABS: Glucose,Whole Blood 144 mg/dL (70-110)
[2024-10-26 20:19] LABS: Glucose,Whole Blood 187 mg/dL (70-110)
[2024-10-26] MEDS: PALIPERIDONE 3 MG TAB.ER.24 PO SCH (22:10)
[2024-10-27 08:57] LABS: Glucose,Whole Blood 163 mg/dL (70-110)
[2024-10-27] MEDS: MAGNESIUM HYDROXIDE 2,400 MG/30 ML CUP PO PRN (12:07)
[2024-10-27 12:45] LABS: Glucose,Whole Blood 75 mg/dL (70-110)
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
[2024-10-27 17:48] LABS: Glucose,Whole Blood 93 mg/dL (70-110)
[2024-10-27 20:27] LABS: Glucose,Whole Blood 155 mg/dL (70-110)
[2024-10-27] MEDS: DIVALPROEX 250 MG TABLET.DR PO SCH (22:10)
[2024-10-28] MEDS: DOCUSATE 100 MG CAP PO SCH (00:21)
[2024-10-28] MEDS: HALOPERIDOL LACTATE 5 MG/ML 1 ML VIAL IM PRN (02:52)
[2024-10-28] MEDS: LORazepam 2 MG/ML INJ IM PRN (02:53)
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
--- NOTE | 2024-10-28 04:31 | CT ---
EXAM: CT Head Without Intravenous Contrast CLINICAL HISTORY: Fall ams post haldol TECHNIQUE: Axial computed tomography images of the head/brain without intravenous contrast. CTDI is 49.2 mGy and DLP is 1392.4 mGy-cm. This CT exam was performed using one or more of the following dose reduction techniques: automated exposure control, adjustment of the mA and/or kV according to patient size, and/or use of iterative reconstruction technique. COMPARISON: No relevant prior studies available. FINDINGS: Brain: Unremarkable. No hemorrhage. No significant white matter disease. No edema. Ventricles: Unremarkable. No ventriculomegaly. Bones/joints: Unremarkable. No acute fracture. Soft tissues: No significant overlying acute traumatic soft tissue abnormality. No radiopaque foreign body. Sinuses: Unremarkable as visualized. No acute sinusitis. Mastoid air cells: Unremarkable as visualized. No mastoid effusion. IMPRESSION: No acute intracranial process identified.
[2024-10-28 07:59] LABS: Glucose,Whole Blood 116 mg/dL (70-110)
[2024-10-28 12:34] LABS: Glucose,Whole Blood 113 mg/dL (70-110)
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
[2024-10-28 16:32] LABS: Glucose,Whole Blood 106 mg/dL (70-110)
[2024-10-28 20:28] LABS: Glucose,Whole Blood 122 mg/dL (70-110)
[2024-10-29 07:52] LABS: Glucose,Whole Blood 122 mg/dL (70-110)
[2024-10-29] MEDS: hydrOXYzine HCL 25 MG TAB PO PRN (11:50)
[2024-10-29 12:40] LABS: Glucose,Whole Blood 73 mg/dL (70-110)
--- NOTE | 2024-10-29 13:05 | P.PN ---
Progress Note - Text Progress Note Date: 10/29/24 Interval history: Patient was seen today wandering the hallways insistent on speaking with fha underwriter. Patient was agreeable to speak to fha underwriter in the lounge. There was noted female patient in the lounge however patient asked if that other patient could stay. We spoke about how she is doing with treatment she states that "you got my medications all messed up" referring to the Invega and claims that she does not like taking the Depakote" continue to do so. She appears to be mildly less oppositional and argumentative today. Claims that there is a program on her phone and also her 's phone that is "stealing information and spying on this". She also spoke more about her medical conditions. she appeared to have poor reality testing, impulsive demanding, this is improving mildly. She continues to be disruptive in group and in the milieu. Has been refusing Invega. Hygiene and grooming appear to be improving mildly. She is denying any suicidal or homicidal ideations intent or plan. Denying any auditory or visual hallucinations. MENTAL STATUS EXAM: General Appearance: Patient appears to be disheveled in appearance, less disheveled hair, stated age is alert,less demanding argumentative. Patient appears to have mildly improving hygiene and grooming. Behavior: Patient is wandering the hallways, less demanding and argumentative. less suspicious Speech: Patient's speech is fluent and nonpressured. [place], improving mildly Mood/Affect: Patient reports their mood is "fine", affect is incongruent and constricted. Suicidality/Homicidality: Denies Perceptions: Denies Though content/process: Patient is less demanding, superficial. Endorsing paranoid delusions. Memory and concentration: Alert and oriented x 3, improving attention span Judgment and insight: Poor, improving mildly IMPRESSIONS: Psychosis unspecified PLAN: -Patient is admitted under voluntary status to [facility]HU for stabilization of psychiatric symptoms and safety. Patient has not signed adult voluntary form and has not signed medication consent and is placed in patient's chart. -Medications : invega po to 3 mg bid for mood stabilization/psychosis. Will likely need to consider long-acting injection due to very poor insight and poor compliance. Continue with Depakote 250 mg twice daily for mood stabilization. -Ativan and Haldol PRN for agitation/aggression -NRT -nicotine patch -SW on board for discharge planning. Encourage patient to participate in groups to work on coping skills. Will await deferral and court date.
[2024-10-29 17:35] LABS: Glucose,Whole Blood 76 mg/dL (70-110)
[2024-10-29 19:52] LABS: Glucose,Whole Blood 137 mg/dL (70-110)
[2024-10-29] MEDS: tiZANidine 4 MG TAB PO PRN (20:37)
[2024-10-29 21:03] LABS: Appearance,Urine Clear (Clear); Bilirubin,Urine Negative (Negative); Blood,Urine Trace (Negative); Color,Urine Colorless; Glucose,Urine (UA) 4+ (Negative); Ketones,Urine Negative (Negative); Leukocyte Esterase,Urine Negative (Negative); Mucus,Urine Rare /hpf; Nitrite,Urine Negative (Negative); Protein,Urine Negative (Negative); RBC,Urine 1 /hpf (0-5); Specific Gravity,Urine 1.008 (1.001-1.035); Squamous Epithelial Cell,Urine <1 /hpf (0-4); Urobilinogen,Urine <2.0 mg/dL (<2.0); WBC,Urine <1 /hpf (0-5)
[2024-10-30] MEDS: LORazepam 1 MG TAB PO PRN (08:49)
[2024-10-30 08:57] LABS: Glucose,Whole Blood 165 mg/dL (70-110)
--- NOTE | 2024-10-30 10:17 | P.PN ---
Progress Note - Text Progress Note Date: 10/30/24 Interval history: Patient was seen today wandering the hallways near the nursing staff. She joan roached the signwriter earlier today and told signwriter "you are not my doctor anymore" and stated that she is going to wait for her other doctor to come and see her. She claims that she does not want to speak to signwriter today and I will and asked him not to write any documentation in her medical chart. When asked why she states that "I do not trust you, you are writing bad things about me". She then proceeded to stop answering any questions and walked away from signwriter. She did fill out a request for medical records. MENTAL STATUS EXAM: General Appearance: Patient appears to be mildly disheveled in appearance, stated age is alert,less demanding argumentative. Patient appears to have mildly improving hygiene and grooming. Behavior: Patient is wandering the hallways, less demanding and argumentative. Suspicious Speech: Patient's speech is fluent and nonpressured. [place], improving mildly Mood/Affect: Unable to assess Suicidality/Homicidality: Unable to assess Perceptions: Unable to assess Though content/process: Patient is demanding, dismissive. Paranoid. Memory and concentration: Unable to assess Judgment and insight: Poor IMPRESSIONS: Psychosis unspecified PLAN: -Patient is admitted under voluntary status to MHU for stabilization of psychiatric symptoms and safety. Patient has not signed adult voluntary form and has not signed medication consent and is placed in patient's chart. -Medications : invega po to 3 mg bid for mood stabilization/psychosis. Will likely need to consider long-acting injection due to very poor insight and poor compliance. Depakote 250 mg twice daily for mood stabilization. -Ativan and Haldol PRN for agitation/aggression -NRT -nicotine patch - on board for discharge planning. Encourage patient to participate in groups to work on coping skills. Will await deferral and court date. Electric Installer, will hold off on reviewing the medical records with patient at this time as he is not would be harmful for patients treatment plan as patient is currently argumentative, uncooperative demanding and also paranoid.
[2024-10-30] MEDS: haloperidoL 5 MG TAB PO PRN (12:30)
[2024-10-30 12:39] LABS: Glucose,Whole Blood 86 mg/dL (70-110)
[2024-10-30 17:57] LABS: Glucose,Whole Blood 98 mg/dL (70-110)
[2024-10-31 07:56] LABS: Glucose,Whole Blood 123 mg/dL (70-110)
[2024-10-31 12:40] LABS: Glucose,Whole Blood 78 mg/dL (70-110)
--- NOTE | 2024-10-31 13:42 | P.PN ---
Progress Note - Text Progress Note Date: 10/31/24 Interval history: Patient was seen today wandering the hallways near the nursing staff and also sitting in the lounge. Diversity Intern encouraged patient to be interviewed today however patient continues to be fairly dismissive of verse writer stating that "I am only going to talk to you if you discharge me today". She continues to request to be transferred to a different doctor and specifically asked about Dr. Cline. She was fairly uncooperative with verse writer continued to be paranoid, insulting and verse writer. She refused to answer any other questions and believes that verse writer is going to "use it against me". Patient has been taking medications for the past day. MENTAL STATUS EXAM: General Appearance: Patient appears to be less disheveled in appearance, stated age is alert, demanding argumentative, uncooperative. Patient appears to have mildly improving hygiene and grooming. Behavior: Patient is wandering the hallways, suspicious and uncooperative with verse writer Speech: Patient's speech is fluent and nonpressured. [place], demanding Mood/Affect: Unable to assess Suicidality/Homicidality: Unable to assess Perceptions: Unable to assess Though content/process: Patient is demanding, dismissive. Paranoid. Memory and concentration: Unable to assess Judgment and insight: Poor IMPRESSIONS: Psychosis unspecified PLAN: -Patient is admitted under voluntary status to MHU for stabilization of psychiatric symptoms and safety. Patient has not signed adult voluntary form and has not signed medication consent and is placed in patient's chart. -Medications : invega po to 3 mg bid for mood stabilization/psychosis. Will likely need to consider long-acting injection due to very poor insight and poor compliance. Depakote 250 mg twice daily for mood stabilization. -Ativan and Haldol PRN for agitation/aggression -NRT -nicotine patch - on board for discharge planning. Encourage patient to participate in groups to work on coping skills. Patient did not defer with her gear hobber operator. Hearing is scheduled for tomorrow at 9 AM with [facility]. Diversity Intern asked Dr. Cline if she would be willing to take on the patient's case, she declined at this time therefore patient will continue on under my care.
[2024-10-31 17:49] LABS: Glucose,Whole Blood 85 mg/dL (70-110)
[2024-10-31 20:27] LABS: Glucose,Whole Blood 152 mg/dL (70-110)
[2024-11-01 07:54] LABS: Glucose,Whole Blood 116 mg/dL (70-110)
--- NOTE | 2024-11-01 11:54 | P.PN ---
Progress Note - Text Progress Note Date: 11/01/24 Interval history: Patient was seen today wandering the hallways today, was approached by investigative writer to be interviewed. Patient walked right by investigative writer and stated "are you kiddingly I am not talking to you, you are the world's biggest criminal". She refused to answer any other questions and walked away from investigative writer. She has been refusing medication since yesterday. Appears to be less intrusive. Continues to be arguing and paranoid demanding. Patient had court earlier this morning which resulted in a mental health court order. MENTAL STATUS EXAM: General Appearance: Patient appears to be less disheveled in appearance, stated age is alert, demanding argumentative, uncooperative. Patient appears to have mildly improving hygiene and grooming. Behavior: Patient is wandering the hallways, suspicious and uncooperative with investigative writer Speech: Patient's speech is fluent and nonpressured. [place], demanding argumentative Mood/Affect: Unable to assess Suicidality/Homicidality: Unable to assess Perceptions: Unable to assess Though content/process: Patient is demanding, dismissive. Paranoid. Memory and concentration: Unable to assess Judgment and insight: Poor IMPRESSIONS: Psychosis unspecified PLAN: -Patient is admitted under voluntary status to MHU for stabilization of psychiatric symptoms and safety. Patient has not signed adult voluntary form and has not signed medication consent and is placed in patient's chart. -Medications : invega po 3 mg bid for mood stabilization/psychosis. Will likely need to consider long-acting injection due to very poor insight and poor compliance. Depakote 250 mg twice daily for mood stabilization. will order PRolixin IM as back up according to order if patient is refusing PO Invega or depakote. -Ativan and Haldol PRN for agitation/aggression -NRT -nicotine patch -SW on board for discharge planning. Encourage patient to participate in groups to work on coping skills. Patient had a hearing on 11/01 which resulted in a mental health court order. Goal will be to transition patient on to a long- acting injection to help ensure compliance and stability.
[2024-11-01 12:24] LABS: Glucose,Whole Blood 86 mg/dL (70-110)
[2024-11-01 12:42] LABS: Glucose,Whole Blood 103 mg/dL (70-110)
[2024-11-01 17:36] LABS: Glucose,Whole Blood 92 mg/dL (70-110)
[2024-11-02 07:54] LABS: Glucose,Whole Blood 107 mg/dL (70-110)
[2024-11-02 12:42] LABS: Glucose,Whole Blood 84 mg/dL (70-110)
[2024-11-02] MEDS: LIDOCAINE 4% PATCH TOPICAL SCH (13:50)
[2024-11-02] MEDS ORDERED: flUPHENAZine 2.5 MG/ML (MDV) 10 ML VIAL IM PRN (19:49)
--- NOTE | 2024-11-02 20:23 | P.PN ---
Progress Note - Text Progress Note Date: 11/02/24 Interval history: Patient was seen today talking to the nurse at the nurse's station. She approac hed by creative services writer to be interviewed, initially ignored, stated she didn't want to talk to me, then agreed to talk to me but was uncooperative, argumentative and irrational. She continues to exhibit paranoid delusions, reports she does not trust the doctors, claims " Sanjay is dangerous" for reasons that don't appear to make any sense. Her insight into the severity of her mental illness is very poor. She is refusing her Invega and refuses any other antipsychotics offered in its place because she claims she is not psychotic and incorrectly claims it was the Invega that was making her psychotic. She is only agreeing to take the Depakote which she believes is "working quite well" for her without an antipsychotic. She appears in denial that she has been placed on a court order for mental health treatment. No SI/HI reported. She denies auditory or visual hallucinations. She claims she has been seen by multiple mental health providers and primary care doctor who she claims "cleared" her from having any psychosis. MENTAL STATUS EXAM: General Appearance: Patient appears to be an overweight adult female, dressed in casual attire, fair hygiene and grooming. Behavior: Patient is standing at the nurse's station intensely talking with a nurse, is suspicious, argumentative, uncooperative with creative services writer Speech: Patient's speech is fluent and non-pressured. Mood/Affect: irritable/congruent Suicidality/Homicidality: Denies Perceptions: Denies AVH Though content/process: Paranoid delusions, fixated on delusional thought content Memory and concentration: Impaired by the severity of her mental illness Judgment and insight: Very poor IMPRESSIONS: Psychosis unspecified, r/o Schizophrenia vs Delusional disorder PLAN: -Patient has been placed on a court order for mental health treatment. -Medications: Continue Invega po 3 mg bid for mood stabilization/psychosis, which she is currently refusing. Will likely need to consider long-acting injection due to very poor insight and poor compliance. Prolixin 2.5 mg IM BID started for refusal of oral Invega or Depakote. Continue Depakote 250 mg twice daily for mood stabilization. -Ativan and Haldol PRN for agitation/aggression -NRT - Nicotine patch -SW on board for discharge planning. Encourage patient to participate in groups to work on coping skills. - Patient had a hearing on 11/01 which resulted in a mental health court order. Go al will be to transition patient on to a long-acting injection to help ensure compliance and stability.
[2024-11-03 07:52] LABS: Glucose,Whole Blood 108 mg/dL (70-110)
--- NOTE | 2024-11-03 10:30 | P.PN ---
Subjective Progress Note Date: 11/03/24 Principal diagnosis: Schizophrenia versus delusional disorder Patient was seen today walking in the winters he came readily and was slightly pressured and verbose but pleasant and cooperative. Her main focus was wanting to be discharged but she rambled so much she was a little unclear as to why that was so important to her. She mentions something about having her back fused and that because her TENS unit is working she does not tolerate the bed being here. However then she got up and bent over to demonstrate her surgeries have worked and how flexible. MENTAL STATUS EXAM: Eye contact is good General Appearance: Patient appears to be an overweight adult female, dressed in casual attire, fair hygiene and grooming. Behavior: Patient is standing at the nurse's station intensely talking with a nurse, is suspicious, argumentative, uncooperative with sheet writer Speech: Patient's speech is fluent and non-pressured. 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 Memory and concentration: Impaired by the severity of her mental illness Judgment and insight: Very poor IMPRESSIONS: Psychosis unspecified, r/o Schizophrenia vs Delusional disorder She comes across with bipolar symptoms. PLAN: -Patient has been placed on a court order for mental health treatment. -Medications: Continue Invega po 3 mg bid for mood stabilization/psychosis, which she is currently refusing. Will likely need to consider long-acting injection due to very poor insight and poor compliance. Prolixin 2.5 mg IM BID started for refusal of oral Invega or Depakote. Continue Depakote 250 mg twice daily for mood stabilization. -Ativan and Haldol PRN for agitation/aggression -NRT - Nicotine patch -SW on board for discharge planning. Encourage patient to participate in groups to work on coping skills. - Patient had a hearing on 11/01 which resulted in a mental health court order. Goal will be to transition patient on to a long-acting injection to help ensure compliance and stability. Objective - Vital Signs Vital signs: Vital Signs Temp 97.6 F 11/03/24 08:25 Pulse 78 11/03/24 08:25 Resp 16 11/03/24 08:25 BP 124/65 11/03/24 08:25 Pulse Ox 98 11/03/24 08:25 FiO2 - Labs CBC & Chem 7: 10/25/24 07:27 10/25/24 07:27
[2024-11-03 12:40] LABS: Glucose,Whole Blood 150 mg/dL (70-110)
[2024-11-03 17:46] LABS: Glucose,Whole Blood 88 mg/dL (70-110)
--- NOTE | 2024-11-04 07:36 | P.PN ---
Subjective Progress Note Date: 11/04/24 Principal diagnosis: Schizophrenia versus delusional disorder Patient was seen today walking in the winters he came readily and was slightly pressured and verbose but pleasant and cooperative. Her main focus today was wanting me to talk to her and get him to except forgiveness and work on the marriage. She also was focused medically on some "machine" that have been put in that monitors her breathing at night and triggers her tongue to pull forward for her sleep apnea which she says is central. She then rambled on to how nobody helps her with her medical problems. MENTAL STATUS EXAM: Eye contact is good General Appearance: Patient appears to be an overweight adult female, dressed in casual attire, fair hygiene and grooming. Behavior: Patient was cooperative Speech: Patient's speech is fluent and slightly pressured and rambling Mood/Affect: Labile once or twice she started crying and then other times she seemed upset and other times okay and she was shift rapidly Suicidality/Homicidality: Denies Perceptions: Denies AVH Though content/process: Paranoid delusions, fixated on delusional thought content. Memory and concentration: Impaired by the severity of her mental illness Judgment and insight: Very poor IMPRESSIONS: Psychosis unspecified, r/o Schizophrenia vs Delusional disorder She comes across with bipolar symptoms. PLAN: -Patient has been placed on a court order for mental health treatment. -Medications: Continue Invega po 3 mg bid for mood stabilization/psychosis, which she is currently refusing. Will likely need to consider long-acting injection due to very poor insight and poor compliance. Prolixin 2.5 mg IM BID started for refusal of oral Invega or Depakote. Continue Depakote 250 mg twice daily for mood stabilization. -Ativan and Haldol PRN for agitation/aggression -NRT - Nicotine patch - on board for discharge planning. Encourage patient to participate in groups to work on coping skills. - Patient had a hearing on 11/01 which resulted in a mental health court order. Goal will be to transition patient on to a long-acting injection to help ensure compliance and stability. Objective - Vital Signs Vital signs: Vital Signs Temp 97.8 F 11/03/24 21:00 Pulse 75 11/03/24 21:00 Resp 16 11/03/24 08:25 BP 121/58 11/03/24 21:00 Pulse Ox 100 11/03/24 21:00 FiO2 - Labs CBC & Chem 7: 10/25/24 07:27 10/25/24 07:27 Labs: Abnormal Lab Results - Last 24 Hours (Table) 11/03/24 Range/Units 12:38 POC Glucose (mg/dL) 150 H (70-110) mg/dL
[2024-11-04 07:37] LABS: Glucose,Whole Blood 116 mg/dL (70-110)
[2024-11-04 11:19] LABS: Glucose,Whole Blood 61 mg/dL (70-110)
[2024-11-04 11:34] LABS: Glucose,Whole Blood 105 mg/dL (70-110)
[2024-11-04 12:42] LABS: Glucose,Whole Blood 174 mg/dL (70-110)
[2024-11-04 17:46] LABS: Glucose,Whole Blood 190 mg/dL (70-110)
[2024-11-04 19:59] LABS: Glucose,Whole Blood 185 mg/dL (70-110)
[2024-11-05 07:35] LABS: Glucose,Whole Blood 129 mg/dL (70-110)
--- NOTE | 2024-11-05 12:32 | P.PN ---
Progress Note - Text Progress Note Date: 11/05/24 Chief complaint: "Psychosis" Interval History: Patient was seen wandering the hallways and was directable and agreeable to speak with writer producer in the office. Prior to meeting the patient recommended was done this is the first time meeting the patient. Per treatment team patient continues to refuse and declined to sign AMY's. They do note that she has improved from admission. Speaking with patient she denies any of the information listed on the H&P including screaming and yelling out in the middle of the street. Additionally she notes that she has plans on returning the home to her . The patient did state that she signed the ROIs for multiple people including her . She denies any depression but notes that she is anxious because of an upcoming impending divorce and her mother. She notes that the Invega has been beneficial and causing clarity, calmness, and focus. She denies any auditory visual hallucinations. She notes no mood swings, racing thoughts. She notes that she slept well last night and notes an increased appetite because the food is good here. She denied any suicidal or homicidal ideations. Patient had bought a vehicle 3 weeks ago and it is currently being delivered to the hospital. Mental Status Exam: General Appearance: Patient appears to be stated age is alert, directable, and cooperative. Behavior: Patient is calmly seated without any agitated behavior. Speech: Patient's speech is fluent and nonpressured. Mood/Affect: Mood is improving mildly, affect is congruent and constricted. Suicidality/Homicidality: Patient denies having any suicidal or homicidal ideation intent or plan. Perceptions: Patient denies any visual hallucinations and denies any auditory hallucinations Though content/process: Patient appears slightly delusional specifically about the incident bringing her into the hospital. Memory and concentration: AOX3, grossly intact for the purposes of this session Judgment and insight: Improving mildly Assessment The patient presented well initially however after further discussion presented slightly odd and guarded. Additionally made somewhat odd that she ordered a vehicle and had it delivered to the hospital. Plan: -Patient continues to meet criteria for inpatient psychiatric admission for symptom stabilization and safety. Patient has not signed in. -Medications: Depakote 250 mg take 1 tablet by mouth twice daily for mood stabilization Invega 3 mg take 1 tablet by mouth twice daily for psychosis/mood stabilization Prolixin 2.5 mg once IM twice daily after refusing Invega -When necessary Ativan and Haldol for agitation/aggression. -NRT -nicotine patch -SW on board for discharge planning. Encouraged the patient to participate in milieu. The patient currently has a court order stay
[2024-11-05 12:44] LABS: Glucose,Whole Blood 98 mg/dL (70-110)
[2024-11-05 17:45] LABS: Glucose,Whole Blood 122 mg/dL (70-110)
[2024-11-06 01:11] LABS: Glucose,Whole Blood 172 mg/dL (70-110)
[2024-11-06 07:51] LABS: Glucose,Whole Blood 127 mg/dL (70-110)
[2024-11-06 13:04] LABS: Glucose,Whole Blood 125 mg/dL (70-110)
--- NOTE | 2024-11-06 13:13 | P.PN ---
Progress Note - Text Progress Note Date: 11/06/24 Chief complaint: Psychosis Interval History: Patient was seen wandering the hallways and and refused to see this provider. Per report patient still is intrusive and entitled. During report no adverse reports of sleep problems, energy, appetite or concentration. Mental Status Exam: General Appearance: Patient appeared to be somewhat disheveled with her hair unmade but her stated age Behavior: Not uncooperative Speech: Patient's speech is fluent and nonpressured. Mood/Affect: Mood is worse, affect is congruent and constricted. Suicidality/Homicidality: Patient refused to interview unknown whether the patient suicidal or homicidal at this time Perceptions: The patient did not appear to be responding to internal stimuli but refused to interview unknown whether she is having auditory or visual hallucinations. Though content/process: Unable to evaluate thought content or process due to refusal to interview. Memory and concentration: Unable to evaluate memory and concentration due to refusal to evaluate Judgment and insight: Poor/poor Diagnoses: Psychosis unspecified Assessment: The patient's behavior on the unit has demonstrated wanting to control things and dictate policies. There has been multiple missed statements about facts. And at this time she is refusing to interview. We will reevaluate the patient tomorrow. Plan: -Patient continues to meet criteria for inpatient psychiatric admission for symptom stabilization and safety. Patient has not signed in. -Medications: Depakote 250 mg take 1 tablet by mouth twice daily for mood stabilization Invega 3 mg take 1 tablet by mouth twice daily for psychosis/mood stabilization Prolixin 2.5 mg once IM twice daily after refusing Invega -When necessary Ativan and Haldol for agitation/aggression. -NRT -nicotine patch - on board for discharge planning. Encouraged the patient to participate in milieu. The patient currently has a court order stay
[2024-11-06 17:36] LABS: Glucose,Whole Blood 123 mg/dL (70-110)
[2024-11-06 20:05] LABS: Glucose,Whole Blood 160 mg/dL (70-110)
[2024-11-07 07:44] LABS: Glucose,Whole Blood 140 mg/dL (70-110)
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
[2024-11-07 12:38] LABS: Glucose,Whole Blood 129 mg/dL (70-110)
[2024-11-07 17:39] LABS: Glucose,Whole Blood 122 mg/dL (70-110)
[2024-11-08 08:20] LABS: Glucose,Whole Blood 135 mg/dL (70-110)
[2024-11-08 11:35] VITALS: BMI 30.1
--- NOTE | 2024-11-08 12:37 | P.PN ---
Progress Note - Text Progress Note Date: 11/08/24 Chief complaint: Psychosis Interval History: Patient was seen wandering the hallways and was directable and agreeable to speak with remote mortgage underwriter in the office. Upon meeting the patient we discussed the long injectable. She had multiple questions which were answered during the conversation. She expressed she likes the idea of doing it this way. It was explained that we are doing it because we feared noncompliance upon discharge. Patient notes some depression related to her upcoming divorce. She notes no anxiety at this time. She denies any suicidal or homicidal ideations. She denies any mood swings or racing thoughts. She notes that her sleep, energy and appetite are good. She denies any problems with concentration. Mental Status Exam: General Appearance: Patient appears to be stated age is alert, directable, and cooperative. Behavior: Patient is calmly seated without any agitated behavior. Speech: Patient's speech is fluent and nonpressured. Mood/Affect: Mood is improving mildly, affect is congruent and constricted. Suicidality/Homicidality: Patient denies having any suicidal or homicidal ideation intent or plan. Perceptions: Patient denies any visual hallucinations and denies any auditory hallucinations Though content/process: Mild paranoia Memory and concentration: AOX3, grossly intact for the purposes of this session Judgment and insight: Improving mildly Diagnoses: Psychosis unspecified History of PTSD per medical reasons History of antisocial personality disorder Assessment: We discussed discharge patient on long-acting injectable and that she is under a medication order from the court that last 90 days. The patient was agreeable to the injection. Anticipated discharge tomorrow Plan: -Patient continues to meet criteria for inpatient psychiatric admission for symptom stabilization and safety. Patient has not signed in. -Medications: Depakote 250 mg take 1 tablet by mouth twice daily for mood stabilization Start 11/08/24 Invega Sustenna 234 mg Im one time loading dose then 117 mg Im in 4 day's after that every 4 weeks Discontinue Invega 3 mg take 1 tablet by mouth twice daily for psychosis/mood stabilization Prolixin 2.5 mg once IM twice daily after refusing Invega -When necessary Ativan and Haldol for agitation/aggression. -NRT -nicotine patch -SW on board for discharge planning. Encouraged the patient to participate in milieu. The patient currently has a court order stay
[2024-11-08] MEDS: PALIPERIDONE IM 234 MG/1.5 ML SYG IM STA (14:01)
[2024-11-08 16:31] LABS: Glucose,Whole Blood 144 mg/dL (70-110)
--- NOTE | 2024-11-09 07:45 | P.DS ---
Providers Date of admission: 10/24/24 22:19 Admission HPI: Admission note was completed by Dr. Grace "Patient presented to the hospital yesterday and was evaluated by EPS nurse and according to note "Pt was brought in on a petition from police. [facility] [place] where police stated that she was kicked out of the hotel, she was yelling into the street, walking into the main road, yelling that she was going to rip her dogs eyes out. Upon assessment pt was wearing her robe from the hotel and sunglasses. PT was signing a form about wearing her sunglasses and she wanted the sitter to sign the hand written paper too. Pt yelled out to security that she was going to call [employer] to have them arrested. Pt has no insight into her mental health. During assessment pt is disorganized, gradiose, tangential, and demanding. Pt was demanding to see RN's notes and sign off on them. Pt has no understanding as to why she is in the ER and why she was restrainted by EMS. Pt was read the petition and denies everything that is written on it but states that she was at the gas station and she was waving at people and talking. Pts appearance is unkempt and disheleved. When asking questions pt would answer and then state, "I will always come up with an explanation for everything". When asked why police were called she said, "It's probably d/t an electronic issue with my husbands computer, the light switch at the hotel wasn't working either". SUPERVISOR SH[employer]PING RO[employer] informed this RN that police stated that she was going to rip her dogs eyes out and she denied, "I was only checking his eyes, because he's tired...you can't hold my dog here, it's illegal". RN explained that police informed ER that he is with animal control for now. Pt marlon en went on a tangent about her mother petitioning her before and and that she was in and out of mental hospitals but wasn't really ill, "I prefer everything organic and my medications are not your business, they are private in my medical records". [employer] were able to pull her medications. Pt would not share her contact number, her husbands information, or medications. Pt appears slightly paranoid. Throughout assessment she would continue to state that, "everything can be explained". Pt was rambling baout getting a clear bill of health and the petition states that she can go, then someone broke into her home and messed with their computer, to talking about trusting her pharmacy, "I will find out". Pt denies SI, HI, or hallucinations at this time. Pt denies any drugs or ETOH, UDS NEG and BAT NEG. Pt has moments of clarity but then speaks off the wall. " Patient was seen wandering the hallways earlier today, appears to be disheveled in appearance. She had to be asked to leave group several times due to being disruptive and demanding and causing arguments within the group. Patient was approached by policy writer sales today in the hallway and appeared to be fairly paranoid//suspicious of policy writer sales. Kitchen Assistant asked if patient wanted to speak in the office she hesitated and did not want to step forward in the office. She preferred to speak in the lounge, she pointed out the different cameras in the lounge to policy writer sales. She asked about credentials. She asked several times what policy writer sales is writing down on the piece of paper. She appeared to have poor frustration tolerance, very poor insight poor judgment. Does not believe that she needs to be in the hospital or take medications. Kitchen Assistant attempted to speak with patient about the petition and her symptoms however patient began being frustrated with policy writer sales and demanded to end the interview and walked away. She was fairly uncooperative with the rest of the interview and gave no previous psychiatric history or social history. And did not answer any questions regarding auditory or visual hallucinations or suicidal/homicidal ideations. She also did not answer any questions related to drug use." Hospital course: Upon admission to the unit patient was admitted involuntarily on a petition and certificate and a second certificate was completed and faxed to the courts. Patient ended up having a court hearing for mental health treatment and receiving a mental health treatment order on 12/01/2024 with a forced med order. Patient got along well with other patients on the unit and followed unit protocol. Patient was compliant with the medications and denied any side effects throughout hospital course. Patient was started on Invega 6 mg daily which was converted to injection that she received on 11/08/2024 of 234 mg of Invega. Additionally, she was placed on Depakote 250 mg twice daily. Patient was initially very resistant to treatment and made threats (legal)her stay as the medications took effect this decreased. Patient spoke of her stressors and engaged in therapy both group and individual. Patient was also seen by medical team for history and physical exam. Throughout the course of the hospitalization patient gradually improved with regards to mood, anxiety, sleep and returned close to baseline level of functioning. Became more future oriented with improved insight and judgment. On the day of discharge patient denied any suicidal or homicidal ideations intent or plan denied any auditory or visual hallucinations. Patient endorsed wanting to live for their health and family. The patient denied any access to guns or weapons. Patient denied any paranoia and did not endorse any delusions. Patient does not have a significant history of substance abuse. Patient was also counseled on the medications and need for regular compliance and was encouraged to follow-up with their outpatient appointment for mental health and also for primary care. Prior to discharge a family meeting will be arranged by director social to answer any questions and ensure safety upon discharge incuding making sure that guns/weapons are either removed from the home or locked away. Day of discharge patient thoughts of self-harm or harm others. She notes that she was not paranoid or having any auditory or visual hallucinations. She denied any ongoing depression or anxiety. She notes that her sleep, energy, appetite and concentration were baseline. Mental status exam: General Appearance: Patient appears to be her stated age is alert, pleasant, and cooperative. Patient is in no acute distress and has improved hygiene and grooming Behavior: Patient is calmly seated without any agitated behavior. Speech: Patient's speech is fluent and nonpressured. Mood/Affect: Patient reports their mood is "better good", affect is congruent and euthymic. Suicidality/Homicidality: Patient denies having any suicidal or homicidal ideation intent or plan. Perceptions: Patient denies any auditory or visual hallucinations. Though content/process: There is no evidence of any delusional thought content and thought process is linear and goal-directed. More future oriented Memory and concentration: AOX3, grossly intact for the purposes of this session. Can spell "WORLD" backwards correctly. Judgment and insight: Chronically poor, however has improved with guarded prognosis Diagnoses: Psychosis unspecified resolved History of PTSD per medical reasons History of antisocial personality disorder Plan: -Continue with discharge today as patient has improved and stabilized psychiatrically and is not currently an imminent threat to themself and/or others. Patient will remain at chronically elevated risk for harm to self and/or others due to their impulsivity and substance abuse. -Continue medications: Continue Depakote 250 mg take 1 tablet by mouth twice daily for mood stabilization Start 11/08/24 Invega Sustenna 234 mg Im one time loading dose then 117 mg Im in 4 day's after that every 4 weeks -Patient was counseled on the need for medication compliance and appropriate follow-up at mental health and also primary care for medical issues. Patient verbalized understanding and agreed. -Social work to help coordinate patients discharge today arrange for and conduct family meeting to ensure safety upon discharge and answer any questions/concerns. also to ensure safe home environment that guns/weapons are either removed from the home or locked away. Social work also to arrange for patients follow up appointments with [facility] for psychiatric care along with follow up with primary care provider. -Patient counseled on abstaining from recreational drugs and marijuana and alcohol. Was informed/educated on the adverse effects on their physical and mental health. Patient verbally agreed and understood. -Patient was instructed to return to the hospital or seek immediate medical care if their psychiatric or medical symptoms do worsen or reoccur. Expected date of discharge: 11/09/24 Attending physician: Kai Grace MD Consults: 10/24/24 22:19 Consult Physician Routine Consulting Provider: [facility] Consult Reason/Comments: H&P Do you want consulting provider notified?: Yes Primary care physician: Stated None - Discharge Diagnosis(es) (1) Acute psychosis Current Visit: Yes Status: Resolved Priority: Low Plan - Discharge Summary Discharge Rx Participant: Yes New Discharge Prescriptions: New Paliperidone Palmitate [Invega Sustenna] 117 mg IM QMONTHLY 1 Days #1 each Divalproex [Depakote] 250 mg PO BID 30 Days #60 tab Continue Metoprolol Succinate [Toprol XL] 100 mg PO DAILY tiZANidine HCL [Zanaflex] 4 mg PO Q6H PRN PRN Reason: Muscle Spasm glipiZIDE [glipiZIDE ER] 10 mg PO BID hydrOXYzine HCL [Atarax] 25 mg PO TID PRN PRN Reason: Anxiety Dapagliflozin Propanediol [Farxiga] 10 mg PO DAILY Discontinued QUEtiapine [SEROquel] 100 mg PO HS Discharge Medication List Dapagliflozin Propanediol [Farxiga] 10 mg PO DAILY 10/24/24 [History] Metoprolol Succinate [Toprol XL] 100 mg PO DAILY 10/24/24 [History] glipiZIDE [glipiZIDE ER] 10 mg PO BID 10/24/24 [History] hydrOXYzine HCL [Atarax] 25 mg PO TID PRN 10/24/24 [History] tiZANidine HCL [Zanaflex] 4 mg PO Q6H PRN 10/24/24 [History] Divalproex [Depakote] 250 mg PO BID 30 Days #60 tab 11/09/24 [Rx] Paliperidone Palmitate [Invega Sustenna] 117 mg IM QMONTHLY 1 Days #1 each 11/09/24 [Rx] Follow up Appointment(s)/Referral(s): Psychology, [place] [Other] - 1 Week (Ivett Johnson) Warner Real MD [Other] - 1 Week (TOOTIE Wolfe) Counseling, [facility] [place] [Other] - 1 Week Activity/Diet/Wound Care/Special Instructions: Avoid the use of street drugs and alcohol. Take all medications as prescribed. When you are in need of refills on your medications, please contact your medical provider and/or outpatient psychiatrist/provider to have this done. Please go to your scheduled outpatient appointment for aftercare treatment. If symptoms return or become worse, call the crisis line at and/or go to the nearest emergency room for evaluation. National Suicide Hotline [facility] [facility] confidentiality statement: "The information contained in this communication, including attachments, is confidential, may be privileged, and is intended only for the use of the named recipient(s). Unauthorized use, disclosure, forwarding or copying is strictly prohibited and may be unlawful. If you have received this communication in error, please notify me IMMEDIATELY at the phone number or pager listed above. Discharge Disposition: HOME SELF-CARE
[2024-11-09 07:56] VITALS: BP 133/68; PULSE 79; RESP 18; TEMP 98
== END 2024-11-09 13:06 | disposition home or self-care (01) | DRG 885 ==
LOC: EC 16:44 → 3MHU 22:19
PROVIDERS: ADMIT Psychiatry & Neurology Psychiatry; ATTEND Psychiatry & Neurology Psychiatry
DX: F23 Brief psychotic disorder (principal); S09.90XA Unspecified injury of head, initial encounter; R45.851 Suicidal ideations; Z78.1 Physical restraint status; E11.9 Type 2 diabetes mellitus without complications; F32.A Depression, unspecified; I10 Essential (primary) hypertension; F60.0 Paranoid personality disorder; F60.2 Antisocial personality disorder; F41.9 Anxiety disorder, unspecified; F43.10 Post-traumatic stress disorder, unspecified; G47.30 Sleep apnea, unspecified; K59.00 Constipation, unspecified; Z79.84 Long term (current) use of oral hypoglycemic drugs; Z79.899 Other long term (current) drug therapy; Z91.199 Patient's noncompliance with other medical treatment and regimen due to unspecified reason; Z88.7 Allergy status to serum and vaccine; Z88.8 Allergy status to other drugs, medicaments and biological substances; W19.XXXA Unspecified fall, initial encounter; Y92.230 Patient room in hospital as the place of occurrence of the external cause
CPT/HCPCS: 36415; 70450; 80053; 80061; 80306; 80320; 81001; 83036; 84443; 85025; 87635; 96372; 99285